=== PATIENT | male | born 1945 | race Caucasian/White ===

== ENCOUNTER → 2017-08-19 | Outpatient (CLI) | payer OTHER, MEDICARE | LOC: FIMAGING 10:31 | PROVIDERS: ATTEND Internal Medicine | DX: R79.89 Other specified abnormal findings of blood chemistry (principal) ==

== ENCOUNTER 2017-09-08 12:01 | Observation (INO) | payer OTHER, MEDICARE ==
[2017-09-08] MEDS ORDERED: FAMOTIDINE 20 MG TAB PO ONE (12:04)
[2017-09-08] MEDS ORDERED: diphenhydrAMINE 25 MG CAP PO ONE (12:04)
[2017-09-08] MEDS ORDERED: ASPIRIN EC 325 MG TAB PO ONE (12:04)
[2017-09-08] MEDS ORDERED: NS 1,000 ML IV ONE (12:04)
[2017-09-08] MEDS ORDERED: DIAZEPAM 5 MG TAB PO ONE (12:04)
--- NOTE | 2017-09-08 12:24 | CPEKG ---
Heart Rate: 57 RR Interval: 1053 P-R Interval: 176 QRSD Interval: 108 QT Interval: 448 QTC Interval: 437 P Pateros: 8 QRS Pateros: -42 T Wave Pater[place]: 27 EKG Severity - ABNORMAL ECG - EKG Impression: SINUS RHYTHM EKG Impression: LEFT ANTERIOR FASCICULAR BLOCK Electronically Signed By: Dylon De La Fuente 08-Sep-2017 15:55:25
[2017-09-08 12:36] LABS: PLATELET COUNT 191 10^3/uL (150-400)
[2017-09-08 12:45] LABS: INR 0.97 (0.83-1.16); PROTIME(PATIENT) 13.1 SEC (12.0-15.0)
--- NOTE | 2017-09-08 12:55 | PDHPUP ---
History & Physical Update H&P update statement: This history and physical update is based on an assessment of the patient which was completed after admission or registration (within 24 hours), but prior to the surgery/procedure. H&P update: H&P reviewed & patient examined, no change in patient's condition since H&P completed H&P changes: Films reviewed status post PCI of the circumflex obtuse marginal branch and distal right coronary artery.
--- NOTE | 2017-09-08 12:55 | PDPROPOC ---
Sedation Plan of Care Sedation Plan of Care: vital signs stable, mental status noted, patient educated of risks, benefits, alternatives, patient can tolerate sedation ASA Classification: ASA 2 Planned drugs: fentanyl, midazolam Mallampati Score: Class 1 Mallampati Reference Image: Patient passed 3-3-2 rule?: Yes
[2017-09-08] MEDS ORDERED: LIDOCAINE 1% 300 MG/30 ML SDV ONE (13:01)
[2017-09-08] MEDS ORDERED: fentaNYL 100 MCG/2 ML INJ ONE (13:01)
[2017-09-08] MEDS ORDERED: IOPAMIDOL (ISOVUE-370) 150 ML BTL IV ONE ×2 (13:02→13:51)
[2017-09-08] MEDS ORDERED: MIDAZOLAM 2 MG/2 ML VIAL ONE (13:02)
[2017-09-08] MEDS ORDERED: HEPARIN 10,000 UNIT/10 ML MDV (1,000 UNIT/ML) ONE (13:48)
[2017-09-08] MEDS ORDERED: NITROGLYCERIN 1,500 MCG/15 ML VIAL MISC ONE (13:59)
[2017-09-08] MEDS ORDERED: LORazepam 2 MG/ML INJ IVP PRN (14:20)
[2017-09-08] MEDS ORDERED: TEMAZEPAM 15 MG CAP PO PRN (14:20)
[2017-09-08] MEDS ORDERED: ATROPINE SULFATE 1 MG/10 ML SYR IVP PRN (14:20)
[2017-09-08] MEDS ORDERED: ONDANSETRON 4 MG/2 ML VIAL IVP PRN (14:20)
[2017-09-08] MEDS ORDERED: NITROGLYCERIN 0.4 MG BTL SL PRN ×2 (14:20→14:21)
--- NOTE | 2017-09-08 14:26 | PDDXCAT ---
Diagnostic Cath Note - . Date: 09/08/17 Front End Developer Designer: David Indication: CCC Class III and IV angina on medical treatment - Procedure Access: right groin Procedure: left heart catheterization, coronary angiography, left ventriculogram - Materials Left Heart Cath size: 6F Left Heart Cath materials: standard multipack (JL4, JR4, pigtail) - Findings-Left Heart Catheterization LM: Unobstructed LAD: Luminal irregularities. Unobstructed LCX: Co dominant: Subtotal stenosis of the 1st obtuse marginal branch proximal to stent. Circumflex artery stent widely patent RCA: Co dominant: Widely patent site of prior stenting EDP: 18 mm of mercury LVEF: 65 Wall motion: Normal Complications: None Estimated blood loss: <50ml Closure method: manual pressure Assessment: Unstable angina with subtotal stenosis of the principal obtuse marginal branch proximal to prior stenting. Widely patent site of prior stenting of the distal right coronary artery proximal circ and distal obtuse marginal branch. Preserved LV function with normal filling pressures. Plan: Urgent PCI of the circumflex/obtuse marginal branch Intervention: After reviewing diagnostic angiograms elected to proceed with urgent PCI. Patient was anticoagulated with heparin. Therapeutic ACT was confirmed. Using a 7 Colombian long sheath in the right femoral artery and a 7 Colombian EBU 3.75 guiding catheter left main coronary selectively intubated. Using a 0.014 [place] wire the obtuse marginal stenosis was crossed using balloon support. Antegrade flow was established using a single inflation with 2.5 mm balloon. 2.5 x 24 mm synergy stent was then placed on the wire positioned across the lesion positioned proximally at the origin of the obtuse marginal branch and deployed using a single inflation. Patient was administered intracoronary nitroglycerin. TORI grade 3 flow was reported. Wire was withdrawn. Final orthogonal angiograms were obtained. Conclusions: Unstable angina status post successful PCI and stenting of the obtuse marginal branch. Patient Problems: Problems Problem Status Onset Coronary artery disease Acute Stented coronary artery Acute
[2017-09-08] MEDS ORDERED: PRASUGREL HCL 10 MG TAB PO ONE (18:15)
--- NOTE | 2017-09-08 18:33 | CPEKG ---
Heart Rate: 49 RR Interval: 1224 P-R Interval: 184 QRSD Interval: 112 QT Interval: 484 QTC Interval: 437 P [place]: 42 QRS [place]: -40 T Wave [place]: 37 EKG Severity - ABNORMAL ECG - EKG Impression: SINUS BRADYCARDIA EKG Impression: LEFT ANTERIOR FASCICULAR BLOCK Electronically Signed By: Sagar Hoff 10-Sep-2017 12:54:57
[2017-09-08 19:56] VITALS: RESP 16
[2017-09-08] MEDS ORDERED: ATORVASTATIN CALCIUM 40 MG TAB PO SCH (21:00)
[2017-09-08 23:27] VITALS: TEMP 97.9
[2017-09-09 04:08] VITALS: O2SAT 96
[2017-09-09 09:00] VITALS: BP 124/92; PULSE 50
[2017-09-09] MEDS ORDERED: LISINOPRIL 40 MG TAB PO SCH (09:00)
[2017-09-09] MEDS ORDERED: ASPIRIN EC 325 MG TAB PO SCH (09:00)
[2017-09-09] MEDS ORDERED: HYDROCHLOROTHIAZIDE 25 MG TAB PO SCH (09:00)
[2017-09-09] MEDS ORDERED: METOPROLOL SUCCINATE XR 25 MG TAB PO SCH (09:00)
[2017-09-09] MEDS ORDERED: PRASUGREL HCL 10 MG TAB PO SCH (09:00)
--- NOTE | 2017-09-09 10:52 | PDDCSUM ---
Discharge Summary Discharge Summary: Admission date 09/08/2017 Discharge date 09/09/2017 Admission diagnosis unstable angina. Discharge diagnosis same status post PCI and stenting of the circumflex artery. Discharge medications per attached sheet. Follow up Dr. Donna Villarreal 1 week. Procedures done in this hospitalization left heart catheterization PCI and stenting of the obtuse marginal branch Narrative: 72-year-old male admitted to the hospital electively from the clinic with unstable angina. He has taken the cardiac chemical laboratory scientist found to have a critical lesion in obtuse marginal branch with TORI grade 2 flow. He underwent successful PCI and stenting. He was started back on dual antiplatelet therapy which he tolerated well. He is feeling improved and ready for discharge this morning. Follow-up as outlined above.
== END 2017-09-09 13:00 | disposition home or self-care (01) ==
LOC: FCATH 12:01 → F2W 14:23
PROVIDERS: ADMIT Internal Medicine Interventional Cardiology; ATTEND Internal Medicine Interventional Cardiology
PROC: 4A023N7 Measurement of Cardiac Sampling and Pressure, Left Heart, Percutaneous Approach (ICD-10-PCS; principal; 2017-09-08)
PROC: B2111ZZ Fluoroscopy of Multiple Coronary Arteries using Low Osmolar Contrast (ICD-10-PCS; principal; 2017-09-08)
PROC: 02703DZ Dilation of Coronary Artery, One Artery with Intraluminal Device, Percutaneous Approach (ICD-10-PCS; principal; 2017-09-08)
PROC: B2151ZZ Fluoroscopy of Left Heart using Low Osmolar Contrast (ICD-10-PCS; principal; 2017-09-08)
DX: I20.0 Unstable angina (principal)
CPT/HCPCS: 92928; 93005; 93458; C1725; C1769; C1874; C1887; C9600; J1644; J2250; J3010; Q9967; J0461

== ENCOUNTER → 2017-10-16 | Outpatient (CLI) | payer OTHER, MEDICARE | LOC: BHFA 10:00 | PROVIDERS: ATTEND Internal Medicine Cardiovascular Disease | DX: I25.10 Atherosclerotic heart disease of native coronary artery without angina pectoris (principal); R01.1 Cardiac murmur, unspecified ==

== ENCOUNTER 2018-07-13 18:19 | Inpatient (IN) | payer OTHER, MEDICARE ==
[~2018-07-13 18:19] MED LIST: IOPAMIDOL (ISOVUE 370) 100 ML BTL IV ONE
[2018-07-13] MEDS ORDERED: NS 1,000 ML IV ONE (19:06)
[2018-07-13] MEDS ORDERED: HEPARIN/DEXTROSE 500 ML IV ONE (19:06)
[2018-07-13] MEDS ORDERED: HEPARIN 10,000 UNIT/10 ML MDV (1,000 UNIT/ML) IVP ONE (19:26)
[2018-07-13] MEDS ORDERED: HEPARIN/DEXTROSE 500 ML IV SCH (19:30)
[2018-07-13 19:51] LABS: PLATELET COUNT 375 10^3/uL (150-400)
--- NOTE | 2018-07-13 19:52 | EDPHY ---
H & P Time Seen by Provider: 07/13/18 19:05 HPI/ROS: Chief complaint. Pulmonary embolus HPI. Patient is a 73-year-old male with several day history of nonproductive cough, exertional shortness of breath, and tightness to his chest with inspiration. He saw his PCP for these symptoms today. Chest x-ray appeared relatively normal. However D-dimer was quite elevated. He was sent for outpatient CT angiogram of his chest which shows bilateral pulmonary embolus with moderate clot load. There is evidence of infarction. He was sent to the emergency department for further evaluation and treatment. The patient has just return from trip to [facility]. He did not notice that he had unusual leg pain or swelling. He initially had a cough that he thought was bronchitis and took a Z-Enrique for this. Symptoms did seem to get better however on return he developed continuing cough and the shortness of breath and chest tightness. ROS 10 systems were reviewed and negative with the exception of the elements mentioned in the history of present illness Past Medical/Surgical History: Cardiac disease with stent, hypertension, dyslipidemia Social History: , nonsmoker, no alcohol Smoking Status: Former smoker Physical Exam: General Appearance: Alert well-developed male moderate distress. Vital signs significant for O2 saturation 88% on room air Eyes: Pupils equal and round no pallor or injection. ENT, Mouth: Mucous membranes are moist. Respiratory: There are no retractions, lungs are clear to auscultation. Cardiovascular: Regular rate and rhythm. Gastrointestinal: Abdomen is soft and nontender, no masses, bowel sounds normal. Neurological: Awake and alert, sensory and motor exams grossly normal. Skin: Warm and dry, no rashes. Musculoskeletal: Neck is supple nontender. Extremities symmetrical, full range of motion. Psychiatric: Patient is oriented X 3, there is no agitation. Constitutional: Initial Vital Signs Temperature (C) 36.3 C 07/13/18 18:25 Heart Rate 90 07/13/18 18:25 Respiratory Rate 16 07/13/18 18:25 Blood Pressure 171/103 H 07/13/18 18:25 O2 Sat (%) 88 L 07/13/18 18:25 O2 Delivery Mode Room Air O2 (L/minute) 2 Allergies/Adverse Reactions: No Known Allergies Allergy (Unverified 07/13/18 18:22) Home Medications: Medication Instructions Recorded Atorvastatin Calcium [Lipitor 40 80 mg PO HS 03/06/15 mg (*)] Metoprolol Succinate Xr [Toprol Xl 25 mg PO DAILY 03/06/15 25 mg (*)] Nitroglycerin [Nitrostat 0.4 mg 0.4 mg SL PRN PRN 03/06/15 (*)] Lisinopril [Zestril 40 mg (*)] 40 mg PO DAILY 09/08/17 Sildenafil Citrate [Revatio 20 MG 10 mg PO DAILY PRN 09/08/17 (*)] Aspirin EC [Aspirin EC 81 mg (*)] 81 mg PO DAILY 07/13/18 Clopidogrel Bisulfate [Clopidogrel] 75 mg PO DAILY 07/13/18 Ezetimibe [Zetia 10 MG (*)] 10 mg PO DAILY 07/13/18 amLODIPine BESYLATE [Norvasc 2.5 2.5 mg PO DAILY 07/13/18 mg (*)] Medical Decision Making - Diagnostics EKG Interpretation: EKG interpreted by me shows normal sinus rhythm normal interval. Left axis deviation. QRS shows left anterior fascicular block. No significant ST elevation or depression. 1 PVC is noted. Rate is 89 Imaging Results: Imaging Impressions Chest/Thorax CTA 07/13/18 17:29 Impression: 1. Large volume bilateral segmental pulmonary emboli with pulmonary infarct right lower lobe anterolaterally and small right effusion. 2. Arteriosclerotic calcification of the thoracic aorta and coronary arteries. Findings discussed with Silas Smith MD at 18:09 hour, 07/13/2018. CT a reviewed by me showing large volume bilateral segmental pulmonary emboli with pulmonary infarct and small right effusion. Procedures: IV normal saline monitor Heparin bolus and drip ED Course/Re-evaluation: Troponin elevated at 0.10 On serial evaluations patient remains stable. O2 saturation with 4 L is 94% Patient and I discussed treatment plan including recommendation for admission. He expresses understanding and agreement I consulted discussed the case with Dr. Barclay, hospitalist, who agrees to the admission Differential Diagnosis: Patient has large volume bilateral pulmonary embolus. He has pulmonary infarct. There is evidence of heart strain and elevated troponin. Vital signs remained stable. However due to the infarct in bilateral embolus as well as elevated troponin he will be placed in Step-Down Unit on IV heparin - Data Points Laboratory Results: Laboratory Results 07/13/18 19:37 07/13/18 19:37 07/13/18 07/13/18 07/13/18 19:40 19:37 19:37 WBC RBC Hgb Hct MCV MCH MCHC RDW Plt Count MPV Neut % (Auto) Lymph % (Auto) [place] % (Auto) Eos % (Auto) Baso % (Auto) Nucleat RBC Rel Count Absolute Neuts (auto) Absolute Lymphs (auto) Absolute Monos (auto) Absolute Eos (auto) Absolute Basos (auto) Absolute Nucleated RBC Immature Gran % Immature Gran # PT 14.8 SEC SEC (12.0-15.0) INR 1.14 (0.83-1.16) APTT 32.0 SEC SEC (23.0-38.0) D-Dimer > 20.00 ug/mLFEU H ug/mLFEU (0.00-0.50) Sodium 137 mEq/L mEq/L (135-145) Potassium 4.7 mEq/L mEq/L (3.5-5.2) Chloride 106 mEq/L mEq/L (97-110) Carbon Dioxide 22 mEq/l mEq/l (22-31) Anion Gap 9 mEq/L mEq/L (6-14) BUN 23 mg/dL mg/dL (7-23) Creatinine 1.2 mg/dL mg/dL (0.7-1.3) POC Creatinine Estimated GFR 59 Glucose 99 mg/dL mg/dL (70-100) Calcium 9.8 mg/dL mg/dL (8.5-10.4) POC Troponin I 0.10 ng/mL H ng/mL (0.00-0.08) 07/13/18 07/13/18 19:37 17:53 WBC 7.90 10^3/uL 10^3/uL (3.80-9.50) RBC 4.66 10^6/uL 10^6/uL (4.40-6.38) Hgb 15.0 g/dL g/dL (13.7-17.5) Hct 45.4 % % (40.0-51.0) MCV 97.4 fL fL (81.5-99.8) MCH 32.2 pg pg (27.9-34.1) MCHC 33.0 g/dL g/dL (32.4-36.7) RDW 13.4 % % (11.5-15.2) Plt Count 375 10^3/uL 10^3/uL (150-400) MPV 9.9 fL fL (8.7-11.7) Neut % (Auto) 75.1 % H % (39.3-74.2) Lymph % (Auto) 15.2 % % (15.0-45.0) [place] % (Auto) 8.6 % % (4.5-13.0) Eos % (Auto) 0.3 % L % (0.6-7.6) Baso % (Auto) 0.4 % % (0.3-1.7) Nucleat RBC Rel Count 0.0 % % (0.0-0.2) Absolute Neuts (auto) 5.94 10^3/uL 10^3/uL (1.70-6.50) Absolute Lymphs (auto) 1.20 10^3/uL 10^3/uL (1.00-3.00) Absolute Monos (auto) 0.68 10^3/uL 10^3/uL (0.30-0.80) Absolute Eos (auto) 0.02 10^3/uL L 10^3/uL (0.03-0.40) Absolute Basos (auto) 0.03 10^3/uL 10^3/uL (0.02-0.10) Absolute Nucleated RBC 0.00 10^3/uL 10^3/uL (0-0.01) Immature Gran % 0.4 % % (0.0-1.1) Immature Gran # 0.03 10^3/uL 10^3/uL (0.00-0.10) PT INR APTT D-Dimer Sodium Potassium Chloride Carbon Dioxide Anion Gap BUN Creatinine POC Creatinine 1.2 mg/dL mg/dL (0.7-1.3) Estimated GFR Glucose Calcium POC Troponin I Medications Given: Discontinued Medications Heparin Sodium (Porcine) (Heparin Injection) 7,500 unit IVP EDNOW ONE Stop: 07/13/18 19:27 Last Admin: 07/13/18 19:38 Dose: 7,500 units Sodium Chloride (Ns) 1,000 mls @ 0 mls/hr IV EDNOW ONE; Wide Open PRN Reason: Protocol Stop: 07/13/18 19:07 Last Admin: 07/13/18 19:43 Dose: 1,000 mls Heparin Sodium (Porcine) (Heparin 50 Units/Ml (Premix)) 500 mls @ 0 mls/hr IV EDNOW ONE PRN Reason: As Directed Stop: 07/13/18 19:07 Last Admin: 07/13/18 19:40 Dose: 500 mls Point of Care Test Results: Chemistry 07/13/18 07/13/18 19:40 17:53 POC Creatinine 1.2 mg/dL mg/dL (0.7-1.3) POC Troponin I 0.10 ng/mL H ng/mL (0.00-0.08) Departure - Departure Disposition: [facility] Inpatient Acute Clinical Impression: Pulmonary embolus and infarction Condition: Fair
--- NOTE | 2018-07-13 19:56 | PDGENHP ---
History and Physical - Chief Complaint Shortness of breath and cough - History of Present Illness This is a 73-year-old male with history coronary artery disease status post 4 stents to return from [facility] 6 weeks ago. He saw his primary care provider today due to worsening nonproductive cough and shortness of breath over the past few days. He denies any fevers or chills. H he states he has a constant chest pressure but no pain. He does note increased fatigue with exertion. He has noticed some swelling of his legs. He denies any history of blood clots. History Information - Allergies/Home Medication List Allergies/Adverse Reactions: No Known Allergies Allergy (Unverified 07/13/18 18:22) Home Medications: Atorvastatin Calcium [Lipitor 40 mg (*)] 80 mg PO HS 03/06/15 [Last Taken ] Metoprolol Succinate Xr [Toprol Xl 25 mg (*)] 25 mg PO DAILY 03/06/15 [Last Taken 09/08/17] Nitroglycerin [Nitrostat 0.4 mg (*)] 0.4 mg SL PRN PRN 03/06/15 [Last Taken Unknown] Lisinopril [Zestril 40 mg (*)] 40 mg PO DAILY 09/08/17 [Last Taken 09/08/17] Sildenafil Citrate [Revatio 20 MG (*)] 40 - 60 mg PO DAILY PRN 09/08/17 [Last Taken Unknown] Plavix 07/13/18 [Last Taken Unknown] I have personally reviewed and updated: family history, medical history, social history, surgical history - Past Medical History Additional medical history: Coronary artery disease with 4 stents. Essential hypertension - Family History Additional family history: Denies family history for thromboembolic disease. His father did have heart disease - Social History Smoking Status: Former smoker Alcohol Use: Occasionally Drug Use: None Review of Systems Review of Systems: ROS: 10pt was reviewed & negative except for what was stated in HPI & below Physical Exam Physical Exam: Temp Pulse Resp BP Pulse Ox 36.3 C 90 16 171/103 H 93 07/13/18 18:25 07/13/18 18:25 07/13/18 18:25 07/13/18 18:25 07/13/18 18:29 Constitutional: no apparent distress, appears nourished, not in pain Eyes: PERRL, anicteric sclera, EOMI Ears, Nose, Mouth, Throat: moist mucous membranes, hearing normal, ears appear normal, no oral mucosal ulcers Cardiovascular: regular rate and rhythym, no murmur, rub, or gallop, edema ( Mild nonpitting edema left lower extremity greater than right) Respiratory: no respiratory distress, no rales or rhonchi, clear to auscultation , No reduced air movement, No expiratory wheeze, No respiratory distress Gastrointestinal: normoactive bowel sounds, soft, non-tender abdomen, no palpable masses Genitourinary: no bladder fullness, no bladder tenderness Skin: warm, normal color, no rashes or abrasions, no fluctuance, no induration, No mottled Musculoskeletal: full muscle strength, no muscle tenderness, normal joint ROM, no joint effusions Neurologic: AAOx3, CN II-XII Intact, No facial droop Psychiatric: interacting appropriately, not anxious, not encephalopathic, thought process linear Lymph, Heme, Immunologic: no cervical LAD, no supraclavicular LAD Lab Data & Imaging Review 07/13/18 19:37 07/13/18 19:37 WBC 7.90 10^3/uL (3.80-9.50) 07/13/18 19:37 RBC 4.66 10^6/uL (4.40-6.38) 07/13/18 19:37 Hgb 15.0 g/dL (13.7-17.5) 07/13/18 19:37 Hct 45.4 % (40.0-51.0) 07/13/18 19:37 MCV 97.4 fL (81.5-99.8) 07/13/18 19:37 MCH 32.2 pg (27.9-34.1) 07/13/18 19:37 MCHC 33.0 g/dL (32.4-36.7) 07/13/18 19:37 RDW 13.4 % (11.5-15.2) 07/13/18 19:37 Plt Count 375 10^3/uL (150-400) 07/13/18 19:37 MPV 9.9 fL (8.7-11.7) 07/13/18 19:37 Neut % (Auto) 75.1 % (39.3-74.2) H 07/13/18 19:37 Lymph % (Auto) 15.2 % (15.0-45.0) 07/13/18 19:37 [place] % (Auto) 8.6 % (4.5-13.0) 07/13/18 19:37 Eos % (Auto) 0.3 % (0.6-7.6) L 07/13/18 19:37 Baso % (Auto) 0.4 % (0.3-1.7) 07/13/18 19:37 Nucleat RBC Rel Count 0.0 % (0.0-0.2) 07/13/18 19:37 Absolute Neuts (auto) 5.94 10^3/uL (1.70-6.50) 07/13/18 19:37 Absolute Lymphs (auto) 1.20 10^3/uL (1.00-3.00) 07/13/18 19:37 Absolute Monos (auto) 0.68 10^3/uL (0.30-0.80) 07/13/18 19:37 Absolute Eos (auto) 0.02 10^3/uL (0.03-0.40) L 07/13/18 19:37 Absolute Basos (auto) 0.03 10^3/uL (0.02-0.10) 07/13/18 19:37 Absolute Nucleated RBC 0.00 10^3/uL (0-0.01) 07/13/18 19:37 Immature Gran % 0.4 % (0.0-1.1) 07/13/18 19:37 Immature Gran # 0.03 10^3/uL (0.00-0.10) 07/13/18 19:37 POC Creatinine 1.2 mg/dL (0.7-1.3) 07/13/18 17:53 POC Troponin I 0.10 ng/mL (0.00-0.08) H 07/13/18 19:40 Visualized and Interpreted imaging results: Yes Interpretation: Impression: CT angio of the chest was reviewed: Impression per Radiology 1. Large volume bilateral segmental pulmonary emboli with pulmonary infarct right lower lobe. anterolaterally and small right effusion. 2. Arteriosclerotic calcification of the thoracic aorta and coronary arteries. Visualized and Interpreted EKG results: Yes EKG Interpretation: Positive for: normal sinsus rhythm (89 Beats per minute) EKG additional interpertation: No acute ischemic changes Assessment & Plan Assessment: This 73-year-old male with known coronary artery disease presenting with: # Large volume bilateral segmental pulmonary emboli (Submassive without hemodynamic compromise) with pulmonary infarct right lower lobe anterolaterally and small right effusion. # elevated troponin # Acute respiratory failure due to above # history coronary artery disease on Plavix # essential hypertension Plan: -admit to step-down unit -start heparin drip per protocol -cycle troponin -echocardiogram -will consult Cardiology -monitor respiratory status -follow-up pending and coags and blood chemistry Patient will be admitted to the hospital under inpatient status. Full code
[2018-07-13] MEDS ORDERED: ACETAMINOPHEN 325 MG TAB PO PRN (20:03)
[2018-07-13 20:04] LABS: INR 1.14 (0.83-1.16)
[2018-07-13] MEDS ORDERED: HEPARIN 10,000 UNIT/10 ML MDV (1,000 UNIT/ML) IVP PRN (20:04)
[2018-07-13 20:08] LABS: PROTIME(PATIENT) 14.8 SEC (12.0-15.0)
--- NOTE | 2018-07-13 21:12 | CPEKG ---
Test Reason : OPEN Blood Pressure : / mmHG Vent. Rate : 089 BPM Atrial Rate : 089 BPM P-R Int : 161 ms QRS Dur : 102 ms QT Int : 386 ms P-R-T Axes : 013 -82 019 degrees QTc Int : 470 ms Sinus rhythm Ventricular premature complex Left anterior fascicular block Confirmed by Branden Curtis ([id number]) on 07/13/2018 9:11:31 PM Referred By: Confirmed By:Branden Curtis
[2018-07-13] MEDS ORDERED: NITROGLYCERIN 0.4 MG BTL SL PRN (21:33)
[2018-07-13] MEDS: ATORVASTATIN CALCIUM 40 MG TAB PO SCH ×2 (21:54→22:58)
[2018-07-14 07:02] LABS: PLATELET COUNT 260 10^3/uL (150-400)
[2018-07-14] MEDS ORDERED: ASPIRIN EC 81 MG TAB PO SCH (09:00)
--- NOTE | 2018-07-14 09:14 | ECHO ---
[email or web address] [address] [address] Main: [phone] Fax: Transthoracic Echocardiogram Name: THOMAS ARGUELLES MR#: [id number] Study Date: 07/14/2018 Study Time: 07:38 AM Date of : 1945 Age: 73 year(s) Height: 177.8 cm (70 in.) Weight: 93.89 kg (207 lb.) BSA: 2.12 m2 Gender: Male Examination: Echo Indication: Elevated troponin with new dx of PE/hx of stents Image Quality: Good Contrast: Requested by: Olayinka Barclay BP: 121 mmHg/57 mmHg Heart Rate: Rhythm: Indication: Elevated troponin with new dx of PE/hx of stents Procedure Staff Sleeping Room Cleaner: Daylin Gan RD Reading Physician: Elgin Hernandez MD Requesting Provider: Conclusions: No pericardial effusion. Concentric left ventricular hypertrophy. Ejection fraction 65%. Tissue Doppler suggest elevated filling pressures. Mild tricuspid regurgitation with right ventricular systolic pressure of 46 mm of mercury. Measurements: Chambers Valvular Assessment AV/MV Valvular Assessment TV/PV Normal Normal Normal Name Value Range Name Value Range Name Value Range Ao Keiko (MM): 4.1 cm (2.2 cm-3.7 AV Vmax: 1.95 m/s (1 m/s-1.7 TR Vmax: 3.22 mm/s ( - ) cm) m/s) TR PGmax: 41 mmHg ( - ) IVSd (2D): 1.0 cm (0.6 cm-1.1 AV meanP mmHg ( - ) syst. PAP: 46 mmHg ( - ) cm) MV E Vmax: 0.65 m/s ( - ) LVDd (2D): 5.1 cm (4.2 cm-5.9 MV A Vmax: 1.12 m/s ( - ) cm) MV E/A: 0.58 ( - ) LVDs (2D): 3.3 cm (2.1 cm-4 cm) LVPWd (2D): 1.0 cm (0.6 cm-1 cm) LVEF (MOD4): 69 % (>=55 %) EF Range: 60-65 % Continued Measurements: Chambers Valvular Assessment AV/MV Valvular Assessment TV/PV Name Value Name Value Name Value LADs: 4.6 cm MV E' Septal: 0.04 m/s CVP (est.): 5 mmHg LADs Lon.4 cm MV E/E' Septal: 15.90 LA Area: 20.6 cm2 MV E/E' Lateral: 11.30 LA Volume: 60 ml Patient: THOMAS ARGUELLES Study Date: 07/14/2018 Page 1 of 2 07:38 AM LA Volume Index: 28.3 ml/m2 Additional Vessels Name Value Ao Ascendin.8 cm Findings: Left Ventricle: Normal size left ventricle. Borderline concentric LV hypertrophy. Normal global systolic LV function. The ejection fraction is estimated to be 60-65 %. No regional wall motion abnormality. E/a wave reversal. Diastolic dysfunction is indeterminate.. Right Ventricle: Normal size right ventricle. Left Atrium: The left atrium is normal in size. Atrial septal bowing from right to left. Right Atrium: The right atrium is normal in size. Mitral Valve: Mild mitral annular calcification. Mild mitral valve regurgitation is present. Aortic Valve: The aortic valve is tri-leaflet. Mild aortic cusp calcification is noted. Trivial aortic valve regurgitation. Tricuspid Valve: The tricuspid valve is normal in appearance and function. Mild tricuspid regurgitation is present. The pulmonary artery pressure is mildly increased. RVSP is 46mmHG.. Pulmonic Valve: The pulmonic valve is normal in appearance and function. Aorta: The aorta is normal. Pericardium: No pericardial effusion. (No Signature Object) Patient: THOMAS ARGUELLES Study Date: 07/14/2018 Page 2 of 2 07:38 AM [id number]
[2018-07-14] MEDS: LISINOPRIL 40 MG TAB PO SCH (09:40)
[2018-07-14] MEDS: EZETIMIBE 10 MG TAB PO SCH (09:41)
[2018-07-14] MEDS: METOPROLOL SUCCINATE XR 25 MG TAB PO SCH (09:42)
[2018-07-14] MEDS: CLOPIDOGREL BISULFATE 75 MG TAB PO SCH (09:49)
--- NOTE | 2018-07-14 10:29 | PDMN ---
Medical Necessity Medical necessity: Pt meets IP criteria as of 07/13/2018 per MD and MCG M-290 ( pulmonary embolism); est los > 2 mn for ongoing tx of large volume bilateral segmental pulmonary emboli with pulmonary infarct right lower lobe and small right effusion causing acute respiratory failure with hypoxemia, and elevated troponin; requiring serial labs, respiratory support, cardiology consult, and heparin gtt.
--- NOTE | 2018-07-14 11:39 | ASMTCASEMG ---
Living Arrangements What is your living Answers: With Spouse arrangement? Who do you live with? Type Of Residence What kind of residence do Answers: House you live in? Discharge Plan Comments Coordination Status Comments Notes: Patient is a 73yo male who just returned from [place] 6 weeks ago. Patient has a hx of coronary artery disease with 4 stents. Patient presents with constant pressure in his chest, increased fatigue with exertion, swelling in his legs. Patient admitted due to elevated troponin, acute respiratory failure, large volume bilateral segmental pulmonary emboli, hx of CAD on Plavix. No therapies ordered at this time. Patient may need cardiac rehab on outpatient basis. CM will follow. Date Signed: 07/14/2018 11:38 AM Electronically Signed By:Ayah Tom LCSW
--- NOTE | 2018-07-14 12:02 | PDCARCONS ---
Cardiology Consult Reason for Consult: Chest tightness Chief Complaint: Shortness of breath chest tightness Requesting Physician: ICU History of Present Illness: 73-year-old well known to me history of multivessel PCI including the circumflex artery obtuse marginal branch and distal right coronary associated with normal LV systolic function. Recent angiogram showed a widely patent site of prior stenting. He has been traveling. He returned with progressive shortness of breath with exertion calf pain diagnosed with acute pulmonary embolic disease. Routine assessment of troponins was elevated and I am asked to comment. He is having no angina. He denies PND orthopnea. He has had no palpitations syncope or near syncope. Echocardiogram done today shows normal right ventricular systolic function with no RV dilatation and right ventricular systolic pressure estimates of 46 mm of mercury. EKG today showed sinus rhythm with left anterior fascicular block there was no evidence of RVH or strain. On my arrival he is comfortable on oxygen. History Information - Allergies/Home Medication List Allergies/Adverse Reactions: No Known Allergies Allergy (Unverified 07/13/18 18:22) Home Medications: Atorvastatin Calcium [Lipitor 40 mg (*)] 80 mg PO HS 03/06/15 [Last Taken ] Metoprolol Succinate Xr [Toprol Xl 25 mg (*)] 25 mg PO DAILY 03/06/15 [Last Taken 07/13/18] Nitroglycerin [Nitrostat 0.4 mg (*)] 0.4 mg SL PRN PRN 03/06/15 [Last Taken Unknown] Lisinopril [Zestril 40 mg (*)] 40 mg PO DAILY 09/08/17 [Last Taken 07/13/18] Sildenafil Citrate [Revatio 20 MG (*)] 10 mg PO DAILY PRN 09/08/17 [Last Taken Unknown] Aspirin EC [Aspirin EC 81 mg (*)] 81 mg PO DAILY 07/13/18 [Last Taken 07/13/18] Clopidogrel Bisulfate [Clopidogrel] 75 mg PO DAILY 07/13/18 [Last Taken 07/13/18 ] Ezetimibe [Zetia 10 MG (*)] 10 mg PO DAILY 07/13/18 [Last Taken 07/13/18] amLODIPine BESYLATE [Norvasc 2.5 mg (*)] 2.5 mg PO DAILY 07/13/18 [Last Taken ] I have personally reviewed and updated: family history, medical history, social history, surgical history Past Medical History: - Past Medical History coronary artery disease, hypertension, hyperlipidemia - Surgical History Reports: coronary stent - Family History Positive for: non-pertinent - Social History Smoking Status: Former smoker Alcohol Use: Occasionally Drug Use: None Physical Exam Physical Exam: Temp Pulse Resp BP Pulse Ox 36.6 C 65 17 147/76 H 97 07/14/18 08:00 07/14/18 08:00 07/14/18 08:00 07/14/18 08:00 07/14/18 08:00 O2 (L/minute) 4 Lab and Imaging 07/14/18 06:00 07/14/18 06:00 WBC 6.63 10^3/uL (3.80-9.50) 07/14/18 06:00 RBC 3.42 10^6/uL (4.40-6.38) L 07/14/18 06:00 Hgb 10.8 g/dL (13.7-17.5) L 07/14/18 06:00 Hct 32.5 % (40.0-51.0) L 07/14/18 06:00 MCV 95.0 fL (81.5-99.8) 07/14/18 06:00 MCH 31.6 pg (27.9-34.1) 07/14/18 06:00 MCHC 33.2 g/dL (32.4-36.7) 07/14/18 06:00 RDW 13.5 % (11.5-15.2) 07/14/18 06:00 Plt Count 260 10^3/uL (150-400) 07/14/18 06:00 MPV 10.3 fL (8.7-11.7) 07/14/18 06:00 Neut % (Auto) 66.7 % (39.3-74.2) 07/14/18 06:00 Lymph % (Auto) 21.0 % (15.0-45.0) 07/14/18 06:00 Pope % (Auto) 10.6 % (4.5-13.0) 07/14/18 06:00 Eos % (Auto) 1.1 % (0.6-7.6) 07/14/18 06:00 Baso % (Auto) 0.3 % (0.3-1.7) 07/14/18 06:00 Nucleat RBC Rel Count 0.0 % (0.0-0.2) 07/14/18 06:00 Absolute Neuts (auto) 4.43 10^3/uL (1.70-6.50) 07/14/18 06:00 Absolute Lymphs (auto) 1.39 10^3/uL (1.00-3.00) 07/14/18 06:00 Absolute Monos (auto) 0.70 10^3/uL (0.30-0.80) 07/14/18 06:00 Absolute Eos (auto) 0.07 10^3/uL (0.03-0.40) 07/14/18 06:00 Absolute Basos (auto) 0.02 10^3/uL (0.02-0.10) 07/14/18 06:00 Absolute Nucleated RBC 0.00 10^3/uL (0-0.01) 07/14/18 06:00 Immature Gran % 0.3 % (0.0-1.1) 07/14/18 06:00 Immature Gran # 0.02 10^3/uL (0.00-0.10) 07/14/18 06:00 PT 14.8 SEC (12.0-15.0) 07/13/18 19:37 INR 1.14 (0.83-1.16) 07/13/18 19:37 APTT 32.0 SEC (23.0-38.0) 07/13/18 19:37 D-Dimer > 20.00 ug/mLFEU (0.00-0.50) H 07/13/18 19:37 Heparin Anti-Xa, Unfract 0.58 IU/mL (0.32-0.67) 07/14/18 08:40 Sodium 139 mEq/L (135-145) 07/14/18 06:00 Potassium 3.9 mEq/L (3.5-5.2) 07/14/18 06:00 Chloride 112 mEq/L (97-110) H 07/14/18 06:00 Carbon Dioxide 22 mEq/l (22-31) 07/14/18 06:00 Anion Gap 5 mEq/L (6-14) L 07/14/18 06:00 BUN 19 mg/dL (7-23) 07/14/18 06:00 Creatinine 0.9 mg/dL (0.7-1.3) 07/14/18 06:00 POC Creatinine 1.2 mg/dL (0.7-1.3) 07/13/18 17:53 Estimated GFR > 60 07/14/18 06:00 Glucose 83 mg/dL (70-100) 07/14/18 06:00 Calcium 7.5 mg/dL (8.5-10.4) L 07/14/18 06:00 POC Troponin I 0.10 ng/mL (0.00-0.08) H 07/13/18 19:40 Troponin I 0.083 ng/mL (0.000-0.034) H 07/14/18 06:00 Visualized and Interpreted EKG results: Yes EKG Interpretation: Positive for: normal sinsus rhythm Echocardiogram: Reviewed A/P Assessment: Impression 73-year-old with acute pulmonary embolic disease. Echocardiogram, clinical history, EKG did not suggest significant RV dysfunction with stable hemodynamics. Agree with heparin and standard medical therapy. Elevation in troponin likely to RV strain. Echo does not show regional wall motion abnormalities. He had recent risk stratification showing patent stents. He has been compliant with dual antiplatelet therapy and secondary prevention. At this point no further cardiac evaluation. Clinical follow-up. Problem list: 1. Acute pulmonary embolic disease 2. Anemia 3. Coronary artery disease on dual antiplatelet therapy for multivessel PCI 4. Hyperlipidemia 5. Hypertension Review of Systems Review of Systems: - Review of Systems Constitutional: malaise, weakness. denies: chills, fever Respiratory: cough, shortness of breath, hurts to breath Cardiac: denies: irregular heart rate, lightheadedness, palpitations, syncope Gastrointestinal/Abdominal: no symptoms reported Genitourinary: no symptoms Musculoskelatal: calf pain Skin: no symptoms Neurological: no symptoms Hematologic/Lymphatic: no symptoms reported Immunologic/allergic: no symptoms reported Past Medical History PMH: - Personal History Current Tetanus/Diphtheria Vaccine: Yes Current Tetanus Diphtheria and Acellular Pertussis (TDAP): Yes Tetanus Vaccine Date: 2011 - Medical/Surgical History Hx Asthma: No Hx Chronic Respiratory Disease: No Hx Cardiac Disease: Yes Hx Diabetes: No Hx Renal Disease: No Hx Alcoholism: No Hx Cirrhosis: No Hx HIV/AIDS: No Hx Splenectomy or Spleen Trauma: No Other PMH: CAD w/ 4 STENT, HTN. - Social History Smoking Status: Former smoker Additional Social History:
[2018-07-14] MEDS: HEPARIN/DEXTROSE 500 ML IV SCH (13:12)
--- NOTE | 2018-07-14 15:23 | HOSPPROG ---
Hospitalist Progress Note Assessment/Plan: * Submassive PE -IV heparin until stability ensured -change to Eliquis at discharge -check BLE rule out DVT * Pulmonary infarct * Acute respiratory failure * RV strain * CAD - multiple stents -change to Plavix alone as will be adding anticoagulation * Troponin elevation -due to RV strain * HTN -home meds Subjective: Still coughing a lot Objective: Vital Signs Temp Pulse Resp BP Pulse Ox 36.7 C 63 17 155/74 H 95 07/14/18 12:00 07/14/18 12:00 07/14/18 12:00 07/14/18 12:00 07/14/18 12:00 Laboratory Results 07/14/18 06:00 07/14/18 06:00 07/13/18 07/14/18 07/15/18 05:59 05:59 05:59 Intake Total 1841 600 Balance 1841 600 PT 14.8 SEC (12.0-15.0) 07/13/18 19:37 INR 1.14 (0.83-1.16) 07/13/18 19:37 EKG viewed, my personal interpretation is - NSR, no ischemic change CT chest - large volume PE with pulmonary infarct - Physical Exam Constitutional: no apparent distress, appears nourished, not in pain Cardiovascular: regular rate and rhythym, no murmur, rub, or gallop Respiratory: no respiratory distress, no rales or rhonchi, clear to auscultation Gastrointestinal: normoactive bowel sounds, soft, non-tender abdomen, no palpable masses Skin: no rashes or abrasions, no fluctuance, no induration Neurologic: AAOx3, sensation intact bilaterally Psychiatric: interacting appropriately, not anxious, not encephalopathic, thought process linear ICD10 Worksheet Patient Problems: Problems Problem Status Onset Coronary artery disease Acute Stented coronary artery Acute Pulmonary embolus and infarction Acute
[2018-07-14] MEDS ORDERED: CEPACOL LOZENGE PO PRN (18:21)
[2018-07-14] MEDS: ATORVASTATIN CALCIUM 40 MG TAB PO SCH (20:15)
[2018-07-15 04:28] LABS: PLATELET COUNT 287 10^3/uL (150-400)
[2018-07-15] MEDS: HEPARIN/DEXTROSE 500 ML IV SCH ×2 (05:46→22:15)
[2018-07-15] MEDS: METOPROLOL SUCCINATE XR 25 MG TAB PO SCH (09:21)
[2018-07-15] MEDS: EZETIMIBE 10 MG TAB PO SCH (09:21)
[2018-07-15] MEDS: LISINOPRIL 40 MG TAB PO SCH (09:21)
[2018-07-15] MEDS: CLOPIDOGREL BISULFATE 75 MG TAB PO SCH (09:22)
--- NOTE | 2018-07-15 10:06 | SOAPPROG ---
SOAP Progress Note Assessment/Plan: Assessment: 1. Pulmonary embolic disease 2. Coronary disease history of multivessel PCI 3. Anemia Impression: Day 2. Stable cardiovascular status on heparin. ECHO suggested no significant injury. Agree with Plavix plus anticoagulation with a history of recent stenting. Recommend anemia evaluation. No further cardiac evaluation at this time 07/15/18 10:04 Subjective: Feeling well. No chest pain shortness of breath. Tolerating heparin well. Cardiac review of systems is negative for chest pain, shortness of breath, PND , orthopnea, palpitations, syncope, near syncope, edema. Objective: Vital Signs Temp Pulse Resp BP Pulse Ox 36.6 C 60 14 147/82 H 95 07/15/18 07:22 07/15/18 07:22 07/15/18 07:22 07/15/18 07:22 07/15/18 07:22 Laboratory Results 07/15/18 03:53 07/15/18 03:53 07/14/18 07/15/18 07/16/18 05:59 05:59 05:59 Intake Total 1841 1173 Output Total 600 Balance 1841 573 PT 14.8 SEC (12.0-15.0) 07/13/18 19:37 INR 1.14 (0.83-1.16) 07/13/18 19:37 Physical Exam - Physical Exam General Appearance: alert, no apparent distress Neck: supple Respiratory: lungs clear, normal breath sounds Cardiac/Chest: normal peripheral pulses, regular rate, rhythm Abdomen: soft Skin: No rash Neuro/Psych: alert, normal mood/affect, oriented x 3 ICD10 Worksheet Patient Problems: Problems Problem Status Onset Coronary artery disease Acute Stented coronary artery Acute Pulmonary embolus and infarction Acute Review of Systems - Review of Systems Constitutional: no symptoms reported EENTM: no symptoms reported Respiratory: no symptoms reported Cardiac: no symptoms reported Gastrointestinal/Abdominal: no symptoms reported Genitourinary: no symptoms Musculoskelatal: no symptoms Skin: no symptoms Neurological: no symptoms Hematologic/Lymphatic: no symptoms reported Immunologic/allergic: no symptoms reported
[2018-07-15] MEDS ORDERED: KETOROLAC 15 MG/1 ML SDV IVP ONE (14:53)
--- NOTE | 2018-07-15 16:25 | HOSPPROG ---
Hospitalist Progress Note Assessment/Plan: * Submassive PE -IV heparin until stability ensured -change to Eliquis at discharge -minimal residual DVT which is reassuring -discharge when pleuritic CP/cough/SOB is better - still very symptomatic * Pulmonary infarct * Acute respiratory failure * RV strain * CAD - multiple stents -change to Plavix alone as will be adding anticoagulation * Troponin elevation -due to RV strain * HTN -home meds Subjective: c/o ongoing pleuritic CP and severe cough Objective: Vital Signs Temp Pulse Resp BP Pulse Ox 36.4 C 64 17 123/71 H 96 07/15/18 15:44 07/15/18 15:44 07/15/18 15:44 07/15/18 15:44 07/15/18 15:44 Laboratory Results 07/15/18 03:53 07/15/18 03:53 07/14/18 07/15/18 07/16/18 05:59 05:59 05:59 Intake Total 1841 1173 350 Output Total 600 Balance 1841 573 350 PT 14.8 SEC (12.0-15.0) 07/13/18 19:37 INR 1.14 (0.83-1.16) 07/13/18 19:37 CXR viewed, my personal interpretation is - no effusion LE US - minimal residual DVT - Physical Exam Constitutional: no apparent distress, appears nourished, not in pain Cardiovascular: regular rate and rhythym, no murmur, rub, or gallop Respiratory: no respiratory distress, no rales or rhonchi, clear to auscultation Gastrointestinal: normoactive bowel sounds, soft, non-tender abdomen, no palpable masses Skin: no rashes or abrasions, no fluctuance, no induration Neurologic: AAOx3, sensation intact bilaterally Psychiatric: interacting appropriately, not anxious, not encephalopathic, thought process linear ICD10 Worksheet Patient Problems: Problems Problem Status Onset Coronary artery disease Acute Stented coronary artery Acute Pulmonary embolus and infarction Acute
[2018-07-15] MEDS: ATORVASTATIN CALCIUM 40 MG TAB PO SCH (20:06)
[2018-07-15] MEDS: KETOROLAC 30 MG/1 ML SDV IVP PRN (22:15)
[2018-07-16] MEDS: CLOPIDOGREL BISULFATE 75 MG TAB PO SCH (08:51)
[2018-07-16] MEDS: EZETIMIBE 10 MG TAB PO SCH (08:52)
[2018-07-16] MEDS: METOPROLOL SUCCINATE XR 25 MG TAB PO SCH (08:52)
[2018-07-16] MEDS: LISINOPRIL 40 MG TAB PO SCH (08:52)
[2018-07-16] MEDS: HEPARIN/DEXTROSE 500 ML IV SCH (13:15)
--- NOTE | 2018-07-16 14:34 | HOSPPROG ---
Hospitalist Progress Note Assessment/Plan: * Submassive PE - no hypotension -IV heparin until stability ensured, discussed changing to eliquis in am -minimal residual DVT which is reassuring -discharge when pleuritic CP/cough/SOB is better - still very symptomatic * Pulmonary infarct - no e/o bacterial pna -pain control with tramadol * Acute respiratory failure - discussed will likely need home O2 * RV strain - echo reviewed * CAD - multiple stents -change to Plavix alone as will be adding anticoagulation -cont BB * Troponin elevation -due to RV strain, trended down * HTN -home meds * Full code * Dispo - likely home in am Subjective: Pt reports pleuritic pain, seems worse after frequent IS use today. NO fevers/chills. No cough or sputum production. He is ambulatory, just a little SOB with activity Objective: Vital Signs Temp Pulse Resp BP Pulse Ox 36.7 C 66 18 121/73 H 92 07/16/18 12:32 07/16/18 12:32 07/16/18 12:32 07/16/18 12:32 07/16/18 12:32 Laboratory Results 07/15/18 03:53 07/15/18 03:53 07/15/18 07/16/18 07/17/18 05:59 05:59 05:59 Intake Total 1173 1148 Output Total 600 1550 Balance 573 -402 PT 14.8 SEC (12.0-15.0) 07/13/18 19:37 INR 1.14 (0.83-1.16) 07/13/18 19:37 - Physical Exam Constitutional: no apparent distress Eyes: PERRL Ears, Nose, Mouth, Throat: moist mucous membranes Cardiovascular: regular rate and rhythym Respiratory: no respiratory distress, other (faint RLL crackle) Gastrointestinal: normoactive bowel sounds, soft, non-tender abdomen Skin: warm Musculoskeletal: full muscle strength Neurologic: AAOx3 Psychiatric: interacting appropriately ICD10 Worksheet Patient Problems: Problems Problem Status Onset Coronary artery disease Acute Stented coronary artery Acute Pulmonary embolus and infarction Acute
--- NOTE | 2018-07-16 15:08 | ASMTCMCOM ---
CM Note CM Note Notes: 07/16/2018 Case Management Note Discussed with MD and PT. There are no identified case management d/c needs. Case Management d/c poc: home independent with follow up as directed. Case Management available if needs change. Date Signed: 07/16/2018 03:08 PM Electronically Signed By:Alize Heller RN
[2018-07-16] MEDS: ATORVASTATIN CALCIUM 40 MG TAB PO SCH (20:07)
[2018-07-16] MEDS: KETOROLAC 30 MG/1 ML SDV IVP PRN (20:08)
--- NOTE | 2018-07-17 08:38 | PDHOMEO2F ---
Home Oxygen Face to Face Home Orders: I certify that a physician or a nurse practitioner or physician's distribution center assistant has had a [id number] encounter with this patient on the date of this order due to the diagnosis listed, which relates to the primary reason the patient requires home oxygen. Alternative treatments have been tried, or considered, and deemed ineffective. It is anticipated that supplemental oxygen will result in improvement with treatment. Home oxygen qualifying diagnosis: PE SpO2 on room air (%): 80 Frequency of home oxygen needed: continuous Home oxygen liters per minute: 2 LPM Home oxygen delivery device: nasal cannula Concentrator: Yes E-tanks for mobility and back up: Yes If ordering portable O2, is the patient mobile in the home?: Yes I certify that, based on these findings, the home oxygen is medically necessary for this patient for the following length of time. Length of time home oxygen needed: 3 months
[2018-07-17] MEDS ORDERED: APIXABAN 5 MG TAB PO SCH (09:00)
[2018-07-17 09:46] VITALS: BP 113/70
[2018-07-17] MEDS: EZETIMIBE 10 MG TAB PO SCH (09:47)
[2018-07-17] MEDS: LISINOPRIL 40 MG TAB PO SCH (09:47)
[2018-07-17] MEDS: CLOPIDOGREL BISULFATE 75 MG TAB PO SCH (09:47)
[2018-07-17] MEDS: METOPROLOL SUCCINATE XR 25 MG TAB PO SCH (09:49)
--- NOTE | 2018-07-17 10:55 | ASMTLACE ---
LACE Length of stay for Answers: 4-6 days current admission Acuity / Level of Answers: Yes Care: Did the patient have an inpatient admission? Comorbidities - select Answers: Coronary Artery Disease all that apply Other Notes: HTN; Dyslipidemia # of Emergency department Answers: 1-2 visits in the last 6 months Score: 11 Date Signed: 07/17/2018 10:54 AM Electronically Signed By:April Rivers RN
--- NOTE | 2018-07-17 12:46 | ASDISCHSUM ---
Discharge Information Plan Status:Home with No Needs Medically Cleared to Leave:07/16/2018 Discharge Date:07/17/2018 12:08 PM CM D/C Disposition:Home, Routine, Self-Care ADT D/C Disposition:Home, Routine, Self-Care Projected Discharge Date:07/17/2018 11:00 AM Transportation at D/C:Family Discharge Delay Reason: Follow-Up Date:07/17/2018 11:00 AM Discharge Slot:1 - 8:01 am - 12:00 noon Final Diagnosis:Submassive PE, pulmonary infarct, acute respiratory therapy, RV strain, CAD, troponi n elevation, HTN Placement Information Referral Type:*Correction/SNF Referral ID:[id number] Provider Name: Address 1: Phone Number: Address 2: Fax Number: City: Selection Factors:Patient/Family Choice State: Patient Contact Information Contact Name:RICHA Relationship: Address:[address] Work Phone: City:[place] Alternate Phone: State/Zip Code:[place] [address] Email: Financial Information Financial Class:Medicare Primary Plan Desc:MEDICARE INPATIENT Primary Plan Number:[id number] Secondary Plan Desc:[employer]/MDR SUPPLEMENT Secondary Plan Number:[id number] Assessment Information LACE LACE Length of stay for Answers: 4-6 days current admission Acuity / Level of Answers: Yes Care: Did the patient have an inpatient admission? Comorbidities - select Answers: Coronary Artery Disease all that apply Other Notes: HTN; Dyslipidemia # of Emergency department Answers: 1-2 visits in the last 6 months Score: 11 Date Signed: 07/17/2018 10:54 AM Electronically Signed By:April Rivers RN [facility] Initial CM Assessment Living Arrangements What is your living Answers: With Spouse arrangement? Who do you live with? Type Of Residence What kind of residence do Answers: House you live in? Discharge Plan Comments Coordination Status Comments Notes: Patient is a 73yo male who just returned from [facility] 6 weeks ago. Patient has a hx of coronary artery disease with 4 stents. Patient presents with constant pressure in his chest, increased fatigue with exertion, swelling in his legs. Patient admitted due to elevated troponin, acute respiratory failure, large volume bilateral segmental pulmonary emboli, hx of CAD on Plavix. No therapies ordered at this time. Patient may need cardiac rehab on outpatient basis. CM will follow. Date Signed: 07/14/2018 11:38 AM Electronically Signed By:Ayah Tom LCSW [facility] CM Progress Note CM Note CM Note Notes: 07/16/2018 Case Management Note Discussed with MD and PT. There are no identified case management d/c needs. Case Management d/c poc: home independent with follow up as directed. Case Management available if needs change. Date Signed: 07/16/2018 03:08 PM Electronically Signed By:Alize Heller RN Case Management Discharge Plan Note Case Management Discharge Discharge Order Complete? Answers: Yes Patient to Obtain Answers: Independently Medications Transportation Arranged Answers: Family/Friends Transport will Pick (Date 07/17/2018 12:00 AM & Time) [facility]RIK Complete Answers: No Notes: N/A Case Management Transport Answers: No Notes: N/A Form Complete Faxed Final Orders Answers: No Notes: N/A Agency/Facility Transfer Answers: No Notes: N/A Report Printed & Faxed to Receiving Agency Family Notified Answers: No Notes: Pt to notify Discharge Comments Notes: Reviewed chart regarding discharge plan of care, pt's progress. Pt to discharge home independently with family support and no identified needs, except home oxygen. PT cleared pt for discharge. Respiratory therapy to arrange for home O2. IM signed, copy placed in chart. Pt to follow up as directed. CM available for any further issues or concerns. Discharge Plan: Home Independently with family support and home oxygen Date Signed: 07/17/2018 12:44 PM Electronically Signed By:April Rivers RN Intervention Information Intervention Type:*IM-Signed Date of Service:07/17/2018 12:44 PM Patient Type:Inpatient Staff Member:ELIZABETH Rivers, April Hours: Discipline: Severity: Comment:
--- NOTE | 2018-07-18 18:51 | GDS ---
DISCHARGE DIAGNOSES: 1. Submassive pulmonary embolism. 2. Pulmonary infarct. 3. Acute hypoxemic respiratory failure secondary to above. 4. Coronary artery disease with prior stents. 5. Elevated troponin secondary to right ventricular strain. 6. Pulmonary embolism. 7. Hypertension. CONSULTANTS: Dr. Elgin Hernandez, cardiology. HISTORY: For details, please see history and physical dated July 13, 2018. In brief, the patien stacie is a 73-year-old male with history of coronary artery disease with previous stents and hypertension , who presents to the emergency department with shortness of breath and cough. He recently traveled home from [facility], where he notes having had several days of symptoms of shortness of breath. Workup in the emergency department included CT pulmonary angiogram which was positive for large-volu me bilateral segmental pulmonary emboli with pulmonary infarct in the right lower lobe. He was admit jon to the hospital for further management. HOSPITAL COURSE: The patient was admitted to the step-down unit. He was started on a heparin drip. He did have a slightly elevated troponin. Echocardiogram showed evidence of right ventricular strai n in the setting of significant clot burden from bilateral pulmonary emboli. His troponin peaked at 0.122 and then trended down. Cardiology consult was obtained. Cardiology consult was obtained. His echo did not show any evidence of regional wall motion abnormalities. He also had recent risk strat ification showing patent coronary stents, and he has been compliant with his dual antiplatelet therap y. Given the initiation of anticoagulation, his aspirin was dropped and he was transitioned to Eliqu is at discharge with instructions to continue Plavix, but discontinue aspirin to minimize bleeding ri sk. He did not have significant tachycardia in the setting of beta-elder; however, he continued to require 2 L/min of oxygen. He had no fevers or evidence of infection. His condition stabilized. T his is considered a provoked event given his travel home from [facility], and he will need antico agulation for no more than 3-6 months. DISPOSITION: Patient was discharged home in stable condition with home oxygen at 2 L/min. DISCHARGE MEDICATIONS: Please see [facility] [facility] for completed outpatient medication list. Medications on discharge include: 1. Eliquis 5 mg p.o. b.i.d., #60, no refills. He was given a 30-day coupon so we have time to pursu e prior authorization if needed or transition to an alternative anticoagulant if his insurance does n ot cover Eliquis. 2. Tramadol 25 to 50 mg p.o. q.6 hours p.r.n., #20, no refills. 3. Tylenol 650 mg p.o. q.6 hours p.r.n. 4. He will continue all other outpatient medications as previously prescribed, including Toprol-XL 2 5 mg p.o. daily, atorvastatin 80 mg p.o. q.h.s., lisinopril 40 mg p.o. daily, Plavix 75 mg p.o. daily , amlodipine 2.5 mg p.o. daily, Zetia 10 mg p.o. daily, sildenafil 10 mg p.o. daily p.r.n., and nitro glycerin 0.4 mg sublingual p.r.n. chest pain. Discontinued medications: Aspirin therapy is discontinued in the setting of initiation of anticoagul ation. FOLLOWUP: Follow up with primary care physician, Dr. Silas Smith, to recheck his oxygen saturati ons and wean off oxygen as indicated. /[id number]/MODL
== END 2018-07-17 12:08 | disposition home or self-care (01) | DRG 175 ==
LOC: F2N 20:56 → F2W 07-14 17:29
PROVIDERS: ADMIT Family Medicine; ATTEND Family Medicine
DX: I26.99 Other pulmonary embolism without acute cor pulmonale (principal); J96.01 Acute respiratory failure with hypoxia; I82.4Z2 Acute embolism and thrombosis of unspecified deep veins of left distal lower extremity; D64.9 Anemia, unspecified; I25.10 Atherosclerotic heart disease of native coronary artery without angina pectoris; Z95.5 Presence of coronary angioplasty implant and graft; E78.5 Hyperlipidemia, unspecified; I10 Essential (primary) hypertension; Z87.891 Personal history of nicotine dependence
CPT/HCPCS: 82565-PO; 84484-PO; 85520-90; 96365; 97161-GP; G8978-GP-CI; G8979-GP-CI; G8980-GP-CI; J1644; J1885; Q9967

== ENCOUNTER → 2018-07-13 | Outpatient (CLI) | payer OTHER, MEDICARE | LOC: FIMAGING 14:55 | PROVIDERS: ATTEND Internal Medicine | DX: R05 Cough (principal); R06.02 Shortness of breath ==